=== PATIENT | female | born 1955 | race African-American/Black ===

== ENCOUNTER 2022-11-15 12:00 | Emergency (ER) | payer MEDICARE, SELFPAY ==
[2022-11-15 12:25] VITALS: BP 133/67; PULSE 89; RESP 16; TEMP 36.9; O2SAT 100
--- NOTE | 2022-11-15 12:42 | ED.GENADULT ---
HPI - General Adult General Chief complaint: Eye Problems Stated complaint: swollen left eye, had cataract surgery Source: patient Mode of arrival: ambulatory Limitations: no limitations History of Present Illness HPI narrative: This is a 67-year-old female who presented for evaluation of left eyelid swelling with symptom onset this morning. She woke from sleep with her symptoms. She reports some associated pruritus. No redness, or mucopurulent discharge. No visual disturbance. She recently had cataract surgery on the left side. She completes her eyedrops prescribed following her surgery tomorrow. She has several environmental allergies including allergies to dogs and pollen. She does have a dog. She is not taking her Zyrtec today. No additional complaints or concerns. Related Data Home Medications Medication Instructions Recorded Confirmed albuterol sulfate 90 mcg/actuation See Rx Instructions .Route .COMPLEX 11/15/22 11/15/22 aerosol inhaler fluconazole 150 mg tablet See Rx Instructions .Route .COMPLEX 11/15/22 11/15/22 nifedipine 30 mg tablet,extended 30 mg PO DAILY 11/15/22 11/15/22 release nystatin 100,000 unit/mL oral See Rx Instructions .Route .COMPLEX 11/15/22 11/15/22 suspension rosuvastatin 5 mg tablet 5 mg PO DAILY 11/15/22 11/15/22 spironolactone 25 mg tablet 25 mg PO DAILY 11/15/22 11/15/22 Allergies Allergy/AdvReac Type Severity Reaction Status Date / Time No Known Allergies Allergy Verified 11/15/22 12:35 Review of Systems Review of Systems: CONSTITUTIONAL: Denies fever, chills, or sweats. EYES: Reports swelling to left eye lids with pruritis in left eye ENT: Denies rhinorrhea, congestion, sore throat, or otalgia. CARDIOVASCULAR: Denies chest pain, palpitations, or edema. RESPIRATORY: Denies cough or dyspnea. GASTROINTESTINAL: Denies abdominal pain, nausea, vomiting, or diarrhea. GENITOURINARY: Denies dysuria or hematuria. SKIN: Denies rash or itching. MUSCULOSKELETAL: Denies back pain, joint pain, or myalgia. NEUROLOGIC: Denies headache, numbness, dizziness, or weakness. PSYCHIATRIC: Denies anxiety or depression. [facility] Past Medical History Medical History Cataract Hyperlipidemia Hypertension Surgical History Surgical History History of cataract surgery Family History Family History Mother Family history non-contributory Social History Social History Substance use: never Gender identity (if verbalized by the patient): Female Spiritual care concerns: No Exam Narrative: GENERAL: Well-appearing, well-nourished, and in no acute distress. HEAD: Normocephalic, atraumatic. EYES: PERRLA and EOMI. There is a small amount of swelling noted to the left upper eyelid without any redness. There is some tearing from left eye ENT: Nares clear, no rhinorrhea or epistaxis. Mucous membranes moist. Oropharynx without tonsillar hypertrophy exudate or other lesions. Bilateral TMs pearly munoz nonbulging NECK: Supple. No adenopathy or masses. No carotid bruits or JVD CHEST: Clear to auscultation. No respiratory distress. No wheezes rales or rhonchi HEART: Regular rate and rhythm. No murmur heard. Normal peripheral pulses. ABDOMEN: Soft, nontender, nondistended, normal active bowel sounds. EXTREMITIES: Normal range of motion. No edema. SKIN: Warm, dry, no rash. NEURO: No focal deficits. Alert and oriented x3. PSYCH: Normal mood and affect. Course Course Emergency Course: This is a 67-year-old female who presented for evaluation of left eyelid swelling and some pruritus the left eye. Her exam is consistent with allergic conjunctivitis. Advised that she start taking her Zyrtec again. I will give her a prescription for Naphcon but she should d
== END 2022-11-15 12:45 | disposition home or self-care (01) ==
PROVIDERS: Emergency Provider Nurse Practitioner; PCP Hospitalist
DX: H10.12 Acute atopic conjunctivitis, left eye (principal); E78.5 Hyperlipidemia, unspecified; I10 Essential (primary) hypertension; Z98.42 Cataract extraction status, left eye
CPT/HCPCS: 99213; G0463